=== PATIENT | female | born 1980 | race American Indian/Alaskan Native ===

== ENCOUNTER 2016-07-10 14:47 | Emergency (ER) | payer BC ==
[2016-07-10 15:09] VITALS: BP 153/107
--- NOTE | 2016-07-10 21:38 | Emergency Department Report ---
ED General Adult HPI - General Chief complaint: Back Pain/Injury Stated complaint: BACK AND CHEST PAIN Source: patient Mode of arrival: Ambulatory Limitations: No Limitations - History of Present Illness Initial comments: 35-year-old female obese comes in for complaint of a headache back pain and mid back going on for 3 days. Patient reports that the pain is worse with movement better with lying down. She also admits that she does work out and she is not sure if she pulled a muscle she complains of chest pain when she moves more like soreness. She also complains of sneezing no sore throat coughing not that bad and eye drainage. Patient denies any fever no chills no recent traumas no nausea no vomiting no dysuria she does admit that her urine has foul smell to it. She does make note that she works outside all day long. She feels her sneezing and has gotten to be the worse. She does complain of nasal congestion worse at night. - Related Data Previous Rx's Medication Instructions Recorded Last Taken Type metroNIDAZOLE [Flagyl TAB] 500 mg PO Q8HR #36 tablet 12/23/14 01/02/15 Rx Azithromycin [Zithromax Z-CHERELLE] 250 mg PO DAILY #6 tab 03/12/15 Unknown Rx HYDROcodone/APAP 5-325 [[place] 1 each PO Q6HR PRN #16 tablet 03/12/15 Unknown Rx 5/325] Methocarbamol [Robaxin TAB] 750 mg PO Q8H PRN #21 tablet 03/12/15 Unknown Rx predniSONE [Deltasone] 20 mg PO TID #15 tab 03/12/15 Unknown Rx Cyclobenzaprine [Flexeril] 10 mg PO TID PRN #20 tablet 05/05/15 Unknown Rx traMADol [Ultram] 50 mg PO Q4HR PRN #30 tablet 05/05/15 Unknown Rx Ibuprofen Oral Liqd [Motrin] 800 mg PO TID PRN #200 ml 02/29/16 Unknown Rx Ibuprofen [Motrin] 800 mg PO Q8HR PRN #20 tablet 02/29/16 Unknown Rx Penicillin Vk [Veetids TAB] 500 mg PO QID #40 tablet 02/29/16 Unknown Rx Cetirizine HCl [ZyrTEC] 10 mg PO QDAY #30 capsule 07/10/16 Unknown Rx Fluticasone [Flonase] 1 spray NS QDAY #1 bottle 07/10/16 Unknown Rx Nitrofurantoin [place]/M-Cryst 100 mg PO Q12HR #14 capsule 07/10/16 Unknown Rx [Macrobid CAP] Allergies Allergy/AdvReac Type Severity Reaction Status Date / Time No Known Allergies Allergy Verified 01/03/15 06:46 ED Review of Systems ROS: Stated complaint: BACK AND CHEST PAIN Other details as noted in HPI Constitutional: denies: chills, fever, malaise Eyes: other (eye drainage) ENT: congestion. denies: ear pain, throat pain Respiratory: cough. denies: shortness of breath Cardiovascular: chest pain (more like soreness). denies: palpitations, dyspnea on exertion, edema Neurological: headache ED Past Medical Hx - Past Medical History Hx Hypertension: Yes (PIH) Hx Congestive Heart Failure: No Hx Diabetes: No Hx Asthma: No Hx COPD: No Additional medical history: Ovarian cyst. Obesity - Surgical History Additional Surgical History: ; ovarian surgery to right ovary - Social History Smoking Status: Never Smoker Substance Use Type: None - Medications Home Medications: Home Medications Medication Instructions Recorded Confirmed Last Taken Type metroNIDAZOLE [Flagyl TAB] 500 mg PO Q8HR #36 tablet 12/23/14 01/03/15 01/02/15 Rx Azithromycin [Zithromax Z-CHERELLE] 250 mg PO DAILY #6 tab 03/12/15 Unknown Rx HYDROcodone/APAP 5-325 [[place] 1 each PO Q6HR PRN #16 tablet 03/12/15 Unknown Rx 5/325] Methocarbamol [Robaxin TAB] 750 mg PO Q8H PRN #21 tablet 03/12/15 Unknown Rx predniSONE [Deltasone] 20 mg PO TID #15 tab 03/12/15 Unknown Rx Cyclobenzaprine [Flexeril] 10 mg PO TID PRN #20 tablet 05/05/15 Unknown Rx traMADol [Ultram] 50 mg PO Q4HR PRN #30 tablet 05/05/15 Unknown Rx Ibuprofen Oral Liqd [Motrin] 800 mg PO TID PRN #200 ml 02/29/16 Unknown Rx Ibuprofen [Motrin] 800 mg PO Q8HR PRN #20 tablet 02/29/16 Unknown Rx Penicillin Vk [Veetids TAB] 500 mg PO QID #40 tablet 02/29/16 Unknown Rx Cetirizine HCl [ZyrTEC] 10 mg PO QDAY #30 capsule 07/10/16 Unknown Rx Fluticasone [Flonase] 1 spray NS QDAY #1 bottle 07/10/16 Unknown Rx Nitrofurantoin [place]/M-Cryst 100 mg PO Q12HR #14 capsule 07/10/16 Unknown Rx [Macrobid CAP] ED Physical Exam - General Limitations: No Limitations General appearance: alert, in no apparent distress - Head Head exam: Present: atraumatic, normocephalic - Eye Eye exam: Present: normal appearance, PERRL, EOMI - ENT ENT exam: Present: normal exam, normal orophraynx, mucous membranes moist, TM's normal bilaterally - Neck Neck exam: Present: normal inspection, full ROM. Absent: tenderness, lymphadenopathy - Respiratory Respiratory exam: Present: normal lung sounds bilaterally - Cardiovascular Cardiovascular Exam: Present: normal rhythm, tachycardia - GI/Abdominal GI/Abdominal exam: Present: soft. Absent: distended, tenderness - Extremities Exam Extremities exam: Absent: pedal edema - Back Exam Back exam: Present: full ROM, tenderness (left mid back), CVA tenderness (L) - Expanded Back Exam Expanded Back exam: Negative Straight Leg Raising: Left, Right - Neurological Exam Neurological exam: Present: oriented X3, abnormal gait - Psychiatric Psychiatric exam: Present: normal affect, normal mood - Skin Skin exam: Present: warm, dry, intact ED Course Vital Signs 07/10/16 15:03 Temperature 98.0 F Pulse Rate 99 H Respiratory 20 Rate Blood Pressure 153/107 O2 Sat by Pulse 100 Oximetry ED Medical Decision Making - Medical Decision Making Discussed with patient that we will do a urinalysis. Appears that she has URI symptoms more like allergies. Will place patient on Zyrtec's histamine obdulia as well as Flonase to help with the nasal congestion. Based on urinalysis we would treat patient accordingly. Patient verbalized understanding will reevaluate patient after results from a urine analysis and verbalized understanding. The patient's urinalysis showed that she has acute area tract infection when he [address] patient on appropriate antibiotics and have her follow-up with a primary care provider. Critical care attestation.: If time is entered above; I have spent that time in minutes in the direct care of this critically ill patient, excluding procedure time. ED Disposition Clinical Impression: Urinary tract infection Qualifiers: Urinary tract infection type: acute cystitis Hematuria presence: without hematuria Qualified Code(s): N30.00 - Acute cystitis without hematuria Seasonal allergies Qualifiers: Allergic rhinitis trigger: unspecified Qualified Code(s): J30.2 - Other seasonal allergic rhinitis Disposition: DISCHARGED TO HOME OR SELFCARE Is pt being admited?: No Does the pt Need Aspirin: No Condition: Stable Instructions: Urinary Tract Infection in Women (ED), Allergies (ED) Additional Instructions: Complete antibiotics as prescribed. You can take Tylenol or Motrin for the back pain. Drink plenty of fluids take your allergy medicine as prescribed and follow up with the referral that was given to you for primary care provider. If symptoms do not get better or get worse to return back to the emergency room for further evaluation Prescriptions: Fluticasone [Flonase] 1 spray NS QDAY #1 bottle Nitrofurantoin [place]/M-Cryst [Macrobid CAP] 100 mg PO Q12HR #14 capsule Cetirizine HCl [ZyrTEC] 10 mg PO QDAY #30 capsule Referrals: PRIMARY MD TWAN [Primary Care Provider] - 3-5 Days RAJAT BROWN MD [Staff Physician] - 3-5 Days [facility] [Outside] - 3-5 Days Forms: Work/School Release Form(ED)
[2016-07-10 22:02] LABS: Bacteria,Urine 1+ /HPF (Negative); Bilirubin,Urine NEG (Negative); Blood,Urine MOD (Negative); Ketones,Urine NEG (Negative); Leukocyte Esterase,Urine LG (Negative); Mucus,Urine 3+ /HPF; Nitrite,Urine NEG (Negative); Protein,Urine <15 mg/dL mg/dL (Negative); Urobilinogen,Urine < 2.0 mg/dL (<2.0)
== END 2016-07-10 22:38 | disposition home or self-care (01) ==
LOC: ED 14:47
DX: N30.00 Acute cystitis without hematuria (principal); J30.2 Other seasonal allergic rhinitis; I10 Essential (primary) hypertension; E66.9 Obesity, unspecified
CPT/HCPCS: 81001; 81025; 93005; 93010; 99283

== ENCOUNTER 2016-10-31 11:58 | Emergency (ER) | payer BC ==
--- NOTE | 2016-10-31 15:58 | Emergency Department Report ---
ED ENT HPI - General Chief complaint: Dental/Oral Stated complaint: SINUS PRESSURE/JAW/TOOTH PAIN Time Seen by Provider: 10/31/16 15:44 Source: patient Mode of arrival: Ambulatory Limitations: No Limitations - History of Present Illness Initial comments: 36-year-old female past medical history hypertension presents with complaint of toothache 3 days. Denies any pus or blood drainage from mouth. Denies any nausea vomiting diarrhea no overt fever or chills. Patient states that she has multiple dental cavities which she is setting up an appointment with a dentist for. MD complaint: tooth pain Onset/Timin -: days(s) Location: tooth # 1 - small abscess here Severity: moderate Severity scale (0 -10): 6 Quality: aching Worsens with: eating Context- Dental: history of dental caries Associated Symptoms: gum swelling, toothache - Related Data Previous Rx's Medication Instructions Recorded Last Taken Type Acetaminophen/Codeine [Tylenol 1 tab PO Q6H PRN #12 tab 10/31/16 Unknown Rx /Codeine # 3 tab] Amoxicillin 500 mg PO TID #30 capsule 10/31/16 Unknown Rx Chlorhexidine Mouthwash [Peridex] 118 ml MM BID #1 bottle 10/31/16 Unknown Rx Ibuprofen [Motrin] 600 mg PO Q8H PRN #30 tablet 10/31/16 Unknown Rx Loratadine [Claritin] 10 mg PO DAILY #30 tablet 10/31/16 Unknown Rx Allergies Allergy/AdvReac Type Severity Reaction Status Date / Time No Known Allergies Allergy Verified 10/31/16 13:31 ED Dental HPI - General Chief complaint: Dental/Oral Stated complaint: SINUS PRESSURE/JAW/TOOTH PAIN Time Seen by Provider: 10/31/16 15:44 Source: patient Mode of arrival: Ambulatory Limitations: No Limitations - Related Data Previous Rx's Medication Instructions Recorded Last Taken Type Acetaminophen/Codeine [Tylenol 1 tab PO Q6H PRN #12 tab 10/31/16 Unknown Rx /Codeine # 3 tab] Amoxicillin 500 mg PO TID #30 capsule 10/31/16 Unknown Rx Chlorhexidine Mouthwash [Peridex] 118 ml MM BID #1 bottle 10/31/16 Unknown Rx Ibuprofen [Motrin] 600 mg PO Q8H PRN #30 tablet 10/31/16 Unknown Rx Loratadine [Claritin] 10 mg PO DAILY #30 tablet 10/31/16 Unknown Rx Allergies Allergy/AdvReac Type Severity Reaction Status Date / Time No Known Allergies Allergy Verified 10/31/16 13:31 ED Review of Systems ROS: Stated complaint: SINUS PRESSURE/JAW/TOOTH PAIN Other details as noted in HPI Constitutional: denies: chills, fever Eyes: denies: eye pain, eye discharge, vision change ENT: dental pain. denies: ear pain, throat pain Respiratory: denies: cough, shortness of breath, wheezing Cardiovascular: denies: chest pain, palpitations Endocrine: no symptoms reported Gastrointestinal: denies: abdominal pain, nausea, diarrhea Genitourinary: denies: urgency, dysuria, discharge Musculoskeletal: denies: back pain, joint swelling, arthralgia Skin: denies: rash, lesions Neurological: denies: headache, weakness, paresthesias Psychiatric: denies: anxiety, depression Hematological/Lymphatic: denies: easy bleeding, easy bruising ED Past Medical Hx - Past Medical History Hx Hypertension: Yes (PIH) Hx Congestive Heart Failure: No Hx Diabetes: No Hx Asthma: No Hx COPD: No Additional medical history: Ovarian cyst. Obesity - Surgical History Additional Surgical History: ; ovarian surgery to right ovary. TUBAL LIGATION - Social History Smoking Status: Former Smoker Substance Use Type: Alcohol - Medications Home Medications: Home Medications Medication Instructions Recorded Confirmed Last Taken Type Acetaminophen/Codeine [Tylenol 1 tab PO Q6H PRN #12 tab 10/31/16 Unknown Rx /Codeine # 3 tab] Amoxicillin 500 mg PO TID #30 capsule 10/31/16 Unknown Rx Chlorhexidine Mouthwash [Peridex] 118 ml MM BID #1 bottle 10/31/16 Unknown Rx Ibuprofen [Motrin] 600 mg PO Q8H PRN #30 tablet 10/31/16 Unknown Rx Loratadine [Claritin] 10 mg PO DAILY #30 tablet 10/31/16 Unknown Rx ED Physical Exam - General Limitations: No Limitations General appearance: alert, in no apparent distress - Head Head exam: Present: atraumatic, normocephalic - Eye Eye exam: Present: normal appearance, PERRL, EOMI - ENT ENT exam: Present: mucous membranes moist - Expanded ENT Exam Expanded Teeth exam: Present: dental caries, dental tenderness # (13) 1 - Dental Tenderness - Neck Neck exam: Present: normal inspection, full ROM - Respiratory Respiratory exam: Present: normal lung sounds bilaterally. Absent: respiratory distress - Cardiovascular Cardiovascular Exam: Present: regular rate, normal rhythm. Absent: systolic murmur, diastolic murmur, rubs, gallop - GI/Abdominal GI/Abdominal exam: Present: soft, normal bowel sounds - Extremities Exam Extremities exam: Present: normal inspection - Back Exam Back exam: Present: normal inspection - Neurological Exam Neurological exam: Present: alert, oriented X3 - Psychiatric Psychiatric exam: Present: normal affect, normal mood - Skin Skin exam: Present: warm, dry, intact, normal color. Absent: rash ED Course Vital Signs 10/31/16 13:25 Temperature 98.3 F Pulse Rate 94 H Respiratory 17 Rate Blood Pressure 142/93 O2 Sat by Pulse 99 Oximetry ED Medical Decision Making - Medical Decision Making A/P: Dental cavity/abscess, 1-Motrin, Tylenol# 3, amoxicillin x7-10days week, Peridex mouthwash 2-patient advised to follow up as soon as possible for dental cavity. I advised patient that lack of follow-up and untreated dental cavity can result in facial/jaw infection and if left untreated can progress to sepsis and become lethal. Patient understood these instructions and agreed to follow-up on outpatient basis with dentist as soon as possible. 3-advised to return to ED [facility] for any significant bleeding pus drainage from oral cavity inability to tolerate by mouth, dyspnea shortness of breath muffled voice and/or stridor Critical care attestation.: If time is entered above; I have spent that time in minutes in the direct care of this critically ill patient, excluding procedure time. ED Disposition Clinical Impression: Dental abscess, Dental cavities Disposition: DISCHARGED TO HOME OR SELFCARE Is pt being admited?: No Does the pt Need Aspirin: No Condition: Stable Instructions: Dental Caries (ED), Dental Abscess (ED) Prescriptions: Acetaminophen/Codeine [Tylenol /Codeine # 3 tab] 1 tab PO Q6H PRN #12 tab PRN Reason: Toothache Amoxicillin 500 mg PO TID #30 capsule Chlorhexidine Mouthwash [Peridex] 118 ml MM BID #1 bottle Ibuprofen [Motrin] 600 mg PO Q8H PRN #30 tablet PRN Reason: Pain Loratadine [Claritin] 10 mg PO DAILY #30 tablet Referrals: [facility] [Outside] - 3-5 Days Forms: Work/School Release Form(ED) Time of Disposition: 16:01
[2016-10-31 16:44] VITALS: BP 135/78
== END 2016-10-31 16:43 | disposition home or self-care (01) ==
LOC: ED 11:58
DX: K04.7 Periapical abscess without sinus (principal); K02.9 Dental caries, unspecified; I10 Essential (primary) hypertension; N83.209 Unspecified ovarian cyst, unspecified side; E66.9 Obesity, unspecified; Z87.891 Personal history of nicotine dependence
CPT/HCPCS: 99282

== ENCOUNTER 2018-01-25 19:12 | Emergency (ER) | payer BC, MEDICAID ==
[2018-01-25 19:41] VITALS: BP 154/100
[2018-01-25] MEDS ORDERED: MOTRIN PO ONE (19:41)
--- NOTE | 2018-01-25 22:42 | Emergency Department Report ---
ED Headache HPI - General Chief Complaint: Headache Stated Complaint: HEADACHE/SINUS PRESSURE Time Seen by Provider: 01/25/18 22:42 - History of Present Illness Initial Comments: 37-year-old Afro-[place] female comes in with facial pain and headache and light sensitivity 3-4 days. Patient admits to sneezing headache nasal swelling nasal congestion postnasal drip. She denies any fever or chills or nausea no vomiting. Patient reports she has a history of allergies and sinusitis. Patient was seen here one year ago and was diagnosed with sinusitis at that time. Timing/Duration: other (3-4 days) Quality: severe, pressure, throbbing Head Injury Location: frontal Recent Head Trauma: no recent headache/trauma Associated Symptoms: facial pain, nasal congestion, nasal drainage. denies: fever/chills, loss of consciousness, nausea/vomiting Allergies/Adverse Reactions: Allergies No Known Allergies Allergy (Verified 10/31/16 13:31) Home Medications: Ambulatory Orders Acetaminophen/Codeine [Tylenol /Codeine # 3 tab] 1 tab PO Q6H PRN #12 tab Amoxicillin 500 mg PO TID #30 capsule 10/31/16 Chlorhexidine Mouthwash [Peridex] 118 ml MM BID #1 bottle 10/31/16 Cephalexin [Keflex] 500 mg PO BID #20 capsule 01/25/18 Fluticasone [Flonase] 1 spray NS QDAY #1 bottle 01/25/18 Ibuprofen [Motrin 600 MG tab] 600 mg PO Q8H PRN #30 tablet 01/25/18 Loratadine [Claritin] 10 mg PO DAILY #30 tablet 01/25/18 ED Review of Systems ROS: Stated complaint: HEADACHE/SINUS PRESSURE Other details as noted in HPI Constitutional: denies: chills, fever ENT: congestion Respiratory: denies: cough, shortness of breath, wheezing Cardiovascular: denies: chest pain, palpitations ED Past Medical Hx - Past Medical History Hx Hypertension: Yes (PIH) Hx Congestive Heart Failure: No Hx Diabetes: No Hx Asthma: No Hx COPD: No Additional medical history: Ovarian cyst. Obesity - Surgical History Additional Surgical History: ; ovarian surgery to right ovary. TUBAL LIGATION - Social History Smoking Status: Never Smoker Substance Use Type: None - Medications Home Medications: Home Medications Medication Instructions Recorded Confirmed Last Taken Type Acetaminophen/Codeine [Tylenol 1 tab PO Q6H PRN #12 tab 10/31/16 Unknown Rx /Codeine # 3 tab] Amoxicillin 500 mg PO TID #30 capsule 10/31/16 Unknown Rx Chlorhexidine Mouthwash [Peridex] 118 ml MM BID #1 bottle 10/31/16 Unknown Rx Cephalexin [Keflex] 500 mg PO BID #20 capsule 01/25/18 Unknown Rx Fluticasone [Flonase] 1 spray NS QDAY #1 bottle 01/25/18 Unknown Rx Ibuprofen [Motrin 600 MG tab] 600 mg PO Q8H PRN #30 tablet 01/25/18 Unknown Rx Loratadine [Claritin] 10 mg PO DAILY #30 tablet 01/25/18 Unknown Rx ED Physical Exam - General Limitations: No Limitations General appearance: alert, in no apparent distress - Head Head exam: Present: atraumatic, normocephalic - Expanded ENT Exam Expanded Ear exam: Present: other (nasal swelling maxillary tenderness frontal tenderness , hypertrophic turbinates) Throat exam: Positive: normal inspection - Respiratory Respiratory exam: Present: normal lung sounds bilaterally. Absent: respiratory distress - Cardiovascular Cardiovascular Exam: Present: regular rate, normal rhythm. Absent: systolic murmur, diastolic murmur, rubs, gallop - Neurological Exam Neurological exam: Present: alert, oriented X3 - Psychiatric Psychiatric exam: Present: normal affect, normal mood - Skin Skin exam: Present: warm, dry, intact, normal color. Absent: rash ED Course Vital Signs 01/25/18 19:37 Temperature 98.7 F Pulse Rate 85 Respiratory 16 Rate Blood Pressure 154/100 O2 Sat by Pulse 100 Oximetry Critical care attestation.: If time is entered above; I have spent that time in minutes in the direct care of this critically ill patient, excluding procedure time. ED Disposition Clinical Impression: Sinusitis nasal Qualifiers: Sinusitis location: maxillary Chronicity: acute Recurrence: non-recurrent Qualified Code(s): J01.00 - Acute maxillary sinusitis, unspecified Disposition: TO HOME OR SELFCARE Is pt being admited?: No Does the pt Need Aspirin: No Condition: Stable Instructions: Sinusitis (ED) Additional Instructions: Please complete antibiotics as prescribed. She is nasal spray and pain medication as needed. Follow up with her primary care provider if symptoms persist or gets worse. Prescriptions: Cephalexin [Keflex] 500 mg PO BID #20 capsule Fluticasone [Flonase] 1 spray NS QDAY #1 bottle Ibuprofen [Motrin 600 MG tab] 600 mg PO Q8H PRN #30 tablet PRN Reason: Pain Loratadine [Claritin] 10 mg PO DAILY #30 tablet Referrals: PRIMARY CARE, [Primary Care Provider] - 3-5 Days Forms: Work/School Release Form(ED)
== END 2018-01-25 23:30 | disposition home or self-care (01) ==
LOC: ED 19:12
DX: J01.00 Acute maxillary sinusitis, unspecified (principal); I10 Essential (primary) hypertension; Z98.51 Tubal ligation status
CPT/HCPCS: 99282

== ENCOUNTER 2019-03-19 14:03 | Emergency (ER) | payer SELFPAY ==
[2019-03-19 14:11] VITALS: BP 153/93
[2019-03-19] MEDS ORDERED: IBUPROFEN 800 MG TAB PO ONE (14:20)
[2019-03-19] MEDS ORDERED: predniSONE 20 MG TAB PO ONE (14:20)
[2019-03-19] MEDS ORDERED: CYCLOBENZAPRINE 10 MG TAB PO ONE (14:20)
--- NOTE | 2019-03-19 14:21 | Emergency Department Report ---
ED Back Pain/Injury HPI - General Chief Complaint: Abdominal Pain Stated Complaint: ABD PAIN Time Seen by Provider: 03/19/19 14:14 Source: patient Limitations: No Limitations - History of Present Illness Initial Comments: PT IS A 38 YO FEMALE WHO COMES TO ER CO SEVERE BACK SPASM AT WORK. IT RADIATES TO THE SUPRAPUBIC AREA. SHE ENDED HER MENSES YESTERDAY- AND REPORTS "IT MAY JUST BE CRAMPS TOO." PT HYSTERICAL ON ADMIT TO [facility]. [facility] FOR CYST HOME MEDS MOTRIN PT STATES SHE WAS IN HER USUAL STATE OF HEALTH TIL THIS PAIN OCCURRED WHILE AT WORK; SHE WAS MOVING AN ITEM. PAIN IS WORSE WITH MOVEMENT. SHE TOOK NOTHING ORE FEEDER. NO N/V/D/FEVER/CHILLS/DYSURIA/VAG DISCHARGE MD Complaint: back pain -: Sudden Similar Symptoms Previously: Yes Place: work Radiation: none Quality: aching Consistency: constant Improves With: none Worsens With: movement Associated Symptoms: denies other symptoms - Related Data Previous Rx's Medication Instructions Recorded Last Taken Type Cyclobenzaprine [Flexeril] 10 mg PO TID PRN #10 tablet 03/19/19 Unknown Rx Ibuprofen [Motrin] 800 mg PO Q8HR PRN #30 tablet 03/19/19 Unknown Rx Allergies Allergy/AdvReac Type Severity Reaction Status Date / Time No Known Allergies Allergy Verified 10/31/16 13:31 ED Review of Systems ROS: Stated complaint: ABD PAIN Other details as noted in HPI Comment: All other systems reviewed and negative ED Past Medical Hx - Past Medical History Ovarian cyst. Obesity Surgical history: other ([facility] CYST) Psychiatric history: no pertinent history LMP comments: current Family history: no significant family history ED Back Pain Physical Exam - Exam General: Vital signs noted. No distress. Alert and acting appropriately. Back/Abdomen: No Abdominal Tenderness, No Perithoracic Tenderness, No Perilumbar Tenderness, No Sacroiliac Tenderness, No Flank Tenderness, No Straight Leg Raise Pain Neuro: Yes Normal Sensation, Yes Normal DTR's, Yes Normal Gait, No Motor Weakness ED Course Vital Signs 03/19/19 14:09 Temperature 99.4 F Pulse Rate 93 H Respiratory 20 Rate Blood Pressure 153/93 O2 Sat by Pulse 97 Oximetry Ed Back Pain Tests - Tests Tests: Normal UA ED Medical Decision Making - Medical Decision Making Labs 03/19/19 14:20 Urine Color Yellow Urine Turbidity Clear Urine pH 8.0 H Ur Specific [place] 1.029 Urine Protein 30 mg/dl Urine Glucose (UA) 50 Urine Ketones Tr Urine Blood Sm Urine Nitrite Neg Urine Bilirubin Neg Urine Urobilinogen < 2.0 Ur Leukocyte Esterase Neg Urine WBC (Auto) 1.0 Urine RBC (Auto) 14.0 U Epithel Cells (Auto) 8.0 Urine Mucus 1+ Urine HCG, Qual Negative Vital Signs 03/19/19 14:09 Temperature 99.4 F Pulse Rate 93 H Respiratory 20 Rate Blood Pressure 153/93 O2 Sat by Pulse 97 Oximetry MEDICATED FOR PAIN ON ARRIVAL DURING MY REASSESSMENT I HAD TO WAKE PT FOR SHE WAS SOUND ASLEEP. SHE REPORTED FEELING BETTER SHE WAS ABLE TO AMBULATE TO THE RESTROOM WITHOUT DIFFICULTY ON MY SECOND REASSESSMENT PT AGAIN STATED SHE FELT BETTER. RN WENT TO DC PT AND SHE SAID SHE HAS SEEN NO PROVIDER. I WENT BACK IN AND EXPLAINED TO HER THAT HER PAIN IS WORSE WITH MOVEMENT. IT IS ALLEVIATED WITH REST AND MEDS. HER URINE IS CLEAN. SHE IS NOT PREG. SHE DENIED AGAIN VAG DISCHA RGE- NO NEED FOR PELVIC EXAM. AND SHE HAD NO FALL WHICH WOULD REQUIRE XRAYS. PT VERBALIZED UNDERSTANDING SHE WAS AGAIN AMBULATED SHE IS EATING CRACKERS AND DRINKING WATER DC HOME WITH GA PLAN OF CARE AND PCP FOLLOW UP - Differential Diagnosis RO PREG/RO UTI/ MUSCLE PAIN Critical care attestation.: If time is entered above; I have spent that time in minutes in the direct care of this critically ill patient, excluding procedure time. ED Disposition Clinical Impression: Muscle spasm, Menses painful, Obese Disposition: DC-01 TO HOME OR SELFCARE Is pt being admited?: No Does the pt Need Aspirin: No Condition: Stable Instructions: Musculoskeletal Pain (ED) Additional Instructions: WARM COMPRESSES MEDS ORDERED TODAY FOLLOW UP WITH PCP - REFERRAL BELOW AND OBGYN- REFERRAL BELOW DIET TOLERATED ACTIVITY TOLERATED Prescriptions: Cyclobenzaprine [Flexeril] 10 mg PO TID PRN #10 tablet PRN Reason: Muscle Spasm Ibuprofen [Motrin] 800 mg PO Q8HR PRN #30 tablet PRN Reason: Pain, Moderate (4-6) Referrals: JOSIE GUTIERREZ MD [Primary Care Provider] - 3-5 Days Time of Disposition: 15:54
[2019-03-19 15:46] LABS: Bilirubin,Urine NEG (Negative); Blood,Urine SM (Negative); Color,Urine Yellow (Yellow); HCG Qualitative,Urine Negative (Negative); Mucus,Urine 1+ /HPF; Urobilinogen,Urine < 2.0 mg/dL (<2.0)
[2019-03-19] MEDS ORDERED: KETOROLAC 60 MG/2 ML INJ IM ONE (15:50)
== END 2019-03-19 16:39 | disposition home or self-care (01) ==
LOC: ED 14:03
DX: M62.830 Muscle spasm of back (principal); N94.6 Dysmenorrhea, unspecified
CPT/HCPCS: 81001; 81025; 96372; 99283; J1885; J7512

== ENCOUNTER 2021-02-13 08:44 | Emergency (ER) | payer SELFPAY ==
[2021-02-13] MEDS ORDERED: ONDANSETRON 4 MG ODT TAB PO ONE (10:13)
--- NOTE | 2021-02-13 10:13 | Emergency Department Report ---
ED General Adult HPI - General Chief complaint: Earache Stated complaint: PAIN EAR AREA Time Seen by Provider: 02/13/21 09:57 Source: patient Mode of arrival: Ambulatory Limitations: No Limitations - History of Present Illness Initial comments: 40-year-old female who denies any significant past medical hx presented to the ER today with complaints of pain to the tragus of her right ear. Patient states that the pain started about a week ago and she noticed that the area is swollen. She states that she did have a piercing which she had done 3 to 4 years ago, but she noticed that the earring was missing for the past 2 to 3 weeks and she is concerned that now she is having the pain and the swelling that the earring could still be in the tragus. She denies any drainage, or redness. Patient also states that for the past 1 week she has been feeling too well. She states that she has been feeling nauseous, having urinary frequency and achy all over and lightheaded. She states that she is not sure if is related to the collar greens that she ate a week ago which contained meat and she states that she has not been eating meat for a while or if it could be related to her nerves because she has been under lots of stress lately especially with the recent losses of a family member. She denies any chest pain, shortness of breath, abdominal pain, dysuria or diarrhea. She denies any vomiting. She denies any syncope, vision changes, focal weakness, cough, URI symptoms or any additional symptoms at this time. Complaint: Right tragal pain/nausea/urinary frequency/achy -: week(s) - Related Data Previous Rx's Medication Instructions Recorded Last Taken Type Cyclobenzaprine [Flexeril] 10 mg PO TID PRN #10 tablet 03/19/19 Unknown Rx Cetirizine HCl [ZyrTEC 10mg cap] 10 mg PO DAILY #30 capsule 02/13/21 Unknown Rx Fluticasone [Flonase] 1 - 2 spray NS QDAY #1 bottle 02/13/21 Unknown Rx Ibuprofen [Motrin 800 MG tab] 800 mg PO Q8HR PRN #30 tablet 02/13/21 Unknown Rx Ondansetron [Zofran Odt] 4 mg PO Q8HR PRN #12 tab.rapdis 02/13/21 Unknown Rx Sulfamethoxazole/Trimethoprim 1 each PO BID #14 tablet 02/13/21 Unknown Rx [Bactrim DS TAB] Allergies Allergy/AdvReac Type Severity Reaction Status Date / Time amoxicillin Allergy Itching Verified 02/13/21 09:44 ED Review of Systems ROS: Stated complaint: PAIN EAR AREA Other details as noted in HPI Comment: All other systems reviewed and negative Constitutional: denies: chills, fever ENT: other (Right tragus pain). denies: ear pain, throat pain, dental pain, hearing loss, epistaxis, congestion Respiratory: denies: cough, shortness of breath, SOB with exertion, SOB at rest, wheezing Cardiovascular: denies: chest pain, palpitations, dyspnea on exertion, edema, syncope, paroxysmal nocturnal dyspnea Gastrointestinal: denies: abdominal pain, nausea, vomiting, diarrhea, constipation, hematemesis, hematochezia Genitourinary: frequency. denies: urgency, dysuria, hematuria, discharge, abnormal menses, dyspareunia Musculoskeletal: denies: back pain, joint swelling, arthralgia Skin: denies: rash, lesions Neurological: other (light headed ). denies: headache, weakness, numbness, paresthesias, confusion Psychiatric: denies: anxiety, depression, auditory hallucinations, visual hallucinations, homicidal thoughts, suicidal thoughts Hematological/Lymphatic: denies: easy bleeding, easy bruising ED Past Medical Hx - Past Medical History Hx Hypertension: Yes (PIH) Hx Congestive Heart Failure: No Hx Diabetes: No Hx Asthma: No Hx COPD: No Additional medical history: Ovarian cyst. Obesity - Surgical History Additional Surgical History: ; ovarian surgery to right ovary. TUBAL LIGATION - Social History Smoking Status: Never Smoker Substance Use Type: None - Medications Home Medications: Home Medications Medication Instructions Recorded Confirmed Last Taken Type Cyclobenzaprine [Flexeril] 10 mg PO TID PRN #10 tablet 03/19/19 Unknown Rx Cetirizine HCl [ZyrTEC 10mg cap] 10 mg PO DAILY #30 capsule 02/13/21 Unknown Rx Fluticasone [Flonase] 1 - 2 spray NS QDAY #1 bottle 02/13/21 Unknown Rx Ibuprofen [Motrin 800 MG tab] 800 mg PO Q8HR PRN #30 tablet 02/13/21 Unknown Rx Ondansetron [Zofran Odt] 4 mg PO Q8HR PRN #12 tab.rapdis 02/13/21 Unknown Rx Sulfamethoxazole/Trimethoprim 1 each PO BID #14 tablet 02/13/21 Unknown Rx [Bactrim DS TAB] ED Physical Exam - General Limitations: No Limitations General appearance: alert, in no apparent distress, anxious - Head Head exam: Present: atraumatic, normocephalic, normal inspection - Eye Eye exam: Present: normal appearance, PERRL, EOMI Pupils: Present: normal accommodation - Expanded ENT Exam Expanded Ear exam: Present: other (mild right tragal ttp with mild swelling but no induration, fluctuance, erythema or obvious FB) TM/Canal exam: Effusion: Right TM, Left TM - Neck Neck exam: Present: normal inspection, full ROM. Absent: meningismus - Respiratory Respiratory exam: Present: normal lung sounds bilaterally. Absent: respiratory distress, wheezes, rales, rhonchi - Cardiovascular Cardiovascular Exam: Present: regular rate, normal rhythm, normal heart sounds - GI/Abdominal GI/Abdominal exam: Present: soft. Absent: distended, tenderness, guarding, rebound - Back Exam Back exam: Present: full ROM - Neurological Exam Neurological exam: Present: alert, oriented X3, CN II-XII intact, normal gait - Psychiatric Psychiatric exam: Present: normal affect, normal mood - Skin Skin exam: Present: intact ED Course Vital Signs 02/13/21 02/13/21 02/13/21 09:46 13:07 13:08 Temperature 99.1 F Pulse Rate 76 86 Respiratory 18 16 Rate Blood Pressure 154/101 Blood Pressure 119/87 133/81 [Left] O2 Sat by Pulse 100 96 Oximetry ED Medical Decision Making - Lab Data Result diagrams: 02/13/21 11:51 02/13/21 11:51 - Radiology Data Radiology results: report reviewed - Medical Decision Making All labs reviewed and unremarkable Skull xray shows no retained FB in right tragus Pt appears more relaxed now. She is not toxic or ill appearing and currently not in any acute distress. She is mentally stable, neurologically intact with a normal gait. She does not appear dehydrated. Her repeat VS show improvement of her BP without intervention. Her remaining VS stable. Her history, exam, diagnostic testing and the patient's current condition does not suggest meningitis, stroke, sepsis, subarachnoid hemorrhage, intracranial bleed, encephalitis, ACS/WI, PE, pneumonia or other significant pathology that would warrant further testing, continued ED treatment, admission, specialist evaluation at this point. Discussed all lab and x-ray results with patient. Patient will be treated for early cellulitis of the right tragus with antibiotics. She also does have some clear fluid behind her eardrum which may be contributing to some of the dizziness that she is feeling so she will be discharged home on Flonase and Zyrtec and she also be given Zofran for nausea. I did recommend that she get an outpatient Covid test especially if she starts developing more URI symptoms. Patient also be given referral to primary care doctor, and informed her that she can also talk to the primary care doctor about her anxiety. Patient expressed understanding of all instructions and agree with plan. Patient stable at time of discharge. Critical care attestation.: If time is entered above; I have spent that time in minutes in the direct care of this critically ill patient, excluding procedure time. ED Disposition Clinical Impression: Eustachian tube dysfunction, Anxiety reaction, Cellulitis of tragus of right ear Disposition: 01 HOME / SELF CARE / HOMELESS Is pt being admited?: No Does the pt Need Aspirin: No Condition: Stable Instructions: Generalized Anxiety Disorder, Adult, Eustachian Tube Dysfunction, Cellulitis, Adult, [id number] Additional Instructions: I recommend that you take the bactrim as prescribed. You can apply warm compress es to ear to help with swelling and pain. Use the flonase and take the zyrtec as prescribed. Take the zofran as needed for nausea. I recommend getting a covid 19 test especially if you start developing more cold symptoms. I recommend close follow up with PCP in 3-5 days. Return to ED if worse. Prescriptions: Sulfamethoxazole/Trimethoprim [Bactrim DS TAB] 1 each PO BID #14 tablet Fluticasone [Flonase] 1 - 2 spray NS QDAY #1 bottle Ibuprofen [Motrin 800 MG tab] 800 mg PO Q8HR PRN #30 tablet PRN Reason: Pain, Moderate (4-6) Ondansetron [Zofran Odt] 4 mg PO Q8HR PRN #12 tab.rapdis PRN Reason: Nausea Cetirizine HCl [ZyrTEC 10mg cap] 10 mg PO DAILY #30 capsule Referrals: PRIMARY CARE, [Primary Care Provider] - 3-5 Days Forms: Work/School Release Form(ED) Time of Disposition: 12:51
--- NOTE | 2021-02-13 11:24 | XRay Report ---
SKULL 2 VIEW(S) INDICATION / CLINICAL INFORMATION: Possible retained FB right tragus. PATIENT STATES THAT SHE BELIEVE THE BACK STOPPER FOR HER EAR RING MIGHT BE LODGE IN HER SKIN NEAR HER RIGHT EAR COMPARISON: None available. FINDINGS: BONES: No acute fracture. No osseous lesion. SOFT TISSUES: No significant abnormality. No radiopaque foreign body. ADDITIONAL FINDINGS: None. IMPRESSION: 1. No radiopaque foreign body. Signer Name: Marcy Mendez MD Signed: 02/13/2021 11:20 AM Workstation Name: [id number]
[2021-02-13 11:25] LABS: Bacteria,Urine 1+ /HPF (Negative); Bilirubin,Urine NEG (Negative); Blood,Urine LG (Negative); Color,Urine Yellow (Yellow); Mucus,Urine FEW /HPF; Protein,Urine <15 mg/dL mg/dL (Negative); Urobilinogen,Urine < 2.0 mg/dL (<2.0)
[2021-02-13 12:33] LABS: Basophils % (Auto) 0.4 % (0.0-1.8); Eosinophils % (Auto) 0.1 % (0.0-4.3); Hematocrit 37.6 % (30.3-42.9); Hemoglobin 12.5 gm/dl (10.1-14.3); Lymphocytes # (Auto) 1.4 K/mm3 (1.2-5.4); Lymphocytes % (Auto) 27.7 % (13.4-35.0); Mean Corpuscular HGB Conc 33 % (30-34); Mean Corpuscular Volume 91 fl (79-97); Monocytes # (Auto) 0.3 K/mm3 (0.0-0.8); Platelet Count 270 K/mm3 (140-440); Red Blood Count 4.13 M/mm3 (3.65-5.03); Red Cell Distribution Width 14.1 % (13.2-15.2)
[2021-02-13 12:46] LABS: Alanine Aminotransferase 7 units/L (7-56); Albumin 3.8 g/dL (3.9-5); Blood Urea Nitrogen 7 mg/dL (7-17); Calcium 8.8 mg/dL (8.4-10.2); Hemolysis Index 5
[2021-02-13 12:51] LABS: BUN/Creatinine Ratio 12
[2021-02-13 13:11] VITALS: BP 133/81
== END 2021-02-13 13:15 | disposition home or self-care (01) ==
LOC: ED 08:44
DX: H69.91 Unspecified Eustachian tube disorder, right ear (principal); F41.9 Anxiety disorder, unspecified; H60.11 Cellulitis of right external ear; I10 Essential (primary) hypertension; Z98.890 Other specified postprocedural states; Z88.1 Allergy status to other antibiotic agents; Z79.899 Other long term (current) drug therapy
CPT/HCPCS: 36415; 70250; 80053; 81001; 84703; 85025; 99283